=== PATIENT | female | born 1975 ===

== ENCOUNTER 2020-04-15 15:42 | Outpatient (CLI) | payer OTHER | END 2020-04-15 15:54 | disposition HB | LOC: RAD 15:42 | DX: M25.531 Pain in right wrist (principal) ==

== ENCOUNTER 2020-12-29 14:43 | Outpatient (CLI) | payer OTHER | END 2020-12-29 14:54 | disposition home or self-care (01) | LOC: SONOGRAMA 14:43 → MAMO-SONO 14:45 → SONOGRAMA 14:54 | PROVIDERS: ATTEND Specialist | DX: N83.01 Follicular cyst of right ovary (principal); R10.31 Right lower quadrant pain; R10.32 Left lower quadrant pain ==

== ENCOUNTER 2021-05-11 15:34 | Emergency (ER) | payer OTHER ==
[~2021-05-11] VITALS: Ht 152.4 cm; Wt 49.9 kg
== END 2021-05-11 19:40 | disposition home or self-care (01) ==
LOC: ER 15:34
DX: R10.2 Pelvic and perineal pain (principal)